=== PATIENT | male | born 1960 | race Caucasian/White ===

== ENCOUNTER 2021-09-29 02:12 | Inpatient (IN) ==
[2021-09-29] MEDS ORDERED: Ondansetron 4 MG/2 ML VIAL IVP ONE (07:09)
[2021-09-29] MEDS ORDERED: Artificial Tears SOLN 15 ML BOTTLE BOTH EYES PRN (08:02)
[2021-09-29] MEDS ORDERED: Acetaminophen 325 MG TABLET PO PRN (08:02)
[2021-09-29] MEDS ORDERED: Naloxone 0.4 MG/ML INJ IVP PRN (08:02)
[2021-09-29] MEDS ORDERED: Perflutren Lipid Microsphere 1.3 ML in 0.9 % Sodium Chloride 8.7 ML IVP PRN (08:55)
[2021-09-29] MEDS ORDERED: Vancomycin (wt based) 1,000 MG VIAL IVPB SCH (09:00)
[2021-09-29] MEDS ORDERED: *HR* Heparin 5,000 UNIT/ML VIAL SQ SCH (09:15)
[2021-09-29 11:02] LABS: ABG Base Excess 4 mEq/L (-2 to 3); ABG HCO3 30 mEq/L (21-27); ABG Oxygen Saturation 100 % (95-98); ABG PCO2 50 mmHg (35-45); ABG PH 7.39 pH Units (7.32-7.45); ABG PO2 204 mmHg (85-104); ABG TCO2 31 mEq/L (20-26); Blood Gas Modality ASSIST CONTROL; Blood Gas VT 450 cc
[2021-09-29] MEDS: Pantoprazole 40 MG VIAL IVP SCH (11:40)
[2021-09-29] MEDS: Artificial Tears SOLN 15 ML BOTTLE BOTH EYES SCH ×4 (11:41→23:05)
[2021-09-29] MEDS: Chlorhexidine Rinse 15 ML MOUTHWASH MM SCH ×2 (11:41→20:00)
[2021-09-29] MEDS: Ondansetron 4 MG/2 ML VIAL IVP SCH ×4 (12:24→20:01)
[2021-09-29] MEDS ORDERED: *HR* Heparin 5,000 UNIT/ML VIAL IVP PRN ×2 (13:04)
[2021-09-29] MEDS ORDERED: *HR* Heparin 5,000 UNIT/ML VIAL IVP ONE (13:04)
[2021-09-29] MEDS ORDERED: Heparin 25,000UNIT/250ML 1/2NS 25,000 UNIT/250 ML IV.SOLN IVC SCH (13:15)
[2021-09-29] MEDS: Heparin 25,000UNIT/250ML 1/2NS 25,000 UNIT/250 ML IV.SOLN IVC SCH (14:23)
[2021-09-29 14:51] LABS: Heparin anti-factor XA UFH 0.39 IU/mL (0.30-0.70)
[2021-09-29 14:54] LABS: Activated Partial Thrombo Time 32.3 Seconds (26.0-36.0)
[2021-09-29] MEDS: Piperacillin/Tazobactam 3.375 GM in 0.9 % Sodium Chloride Mini Bag 100 ML IVPB SCH ×2 (17:08→23:05)
[2021-09-29] MEDS: Norepinephrine 4 MG/254 ML IV.SOLN IVC SCH (18:27)
[2021-09-30 02:48] LABS: VBG Ionized Calcium 1.28 mmol/L (1.15-1.35)
[2021-09-30 02:54] LABS: Basophils % 0.2 %; Eosinophils # 0.2 K/mcL (0.0-0.6); Eosinophils % 1.1 %; Hematocrit 28.5 % (37.5-50.1); Hemoglobin 8.5 g/dL (12.9-16.9); Immature Granulocytes % 0.4 % (0-4); Lymphocytes # 1.1 K/mcL (0.6-4.6); Lymphocytes % 5.9 %; Mean Corpuscular HGB Conc 29.8 g/dL (31.6-35.5); Mean Corpuscular Hemoglobin 24.9 pg (28.0-33.3); Mean Corpuscular Volume 83.3 fL (83.0-100.0); Mean Platelet Volume 9.7 fL (9.4-12.4); Monocytes # 1.1 K/mcL (0.0-1.3); Monocytes % 5.9 %; Neutrophils # 16.2 K/mcL (1.6-8.9); Platelet Count 318 K/mcL (140-400); Red Blood Count 3.42 M/mcL (4.19-5.50); Red Cell Distribution Width 17.6 % (11.5-14.5); Segmented Neutrophils % 86.5 %; White Blood Count 18.7 K/mcL (4.3-11.1)
[2021-09-30 03:05] LABS: Calcium 9.2 mg/dL (8.6-10.3); Magnesium 1.9 mg/dL (1.6-2.6); Phosphorous 2.6 mg/dL (2.7-4.5)
[2021-09-30] MEDS: Artificial Tears SOLN 15 ML BOTTLE BOTH EYES SCH ×5 (03:33→20:06)
[2021-09-30 04:09] LABS: ABG Base Excess 3 mEq/L (-2 to 3); ABG HCO3 27 mEq/L (21-27); ABG Oxygen Saturation 99 % (95-98); ABG PCO2 43 mmHg (35-45); ABG PH 7.41 pH Units (7.32-7.45); ABG PO2 130 mmHg (85-104); ABG TCO2 29 mEq/L (20-26); Blood Gas VT 450 cc
[2021-09-30] MEDS: Pantoprazole 40 MG VIAL IVP SCH (08:28)
[2021-09-30] MEDS: Chlorhexidine Rinse 15 ML MOUTHWASH MM SCH ×2 (08:28→20:06)
[2021-09-30] MEDS: Piperacillin/Tazobactam 3.375 GM in 0.9 % Sodium Chloride Mini Bag 100 ML IVPB SCH ×2 (08:29→15:21)
[2021-09-30] MEDS: Norepinephrine 4 MG/254 ML IV.SOLN IVC SCH (08:30)
[2021-09-30] MEDS ORDERED: Lidocaine -MPF 1% 5 ML AMPUL ONE (11:42)
[2021-09-30] MEDS: Ondansetron 4 MG/2 ML VIAL IVP SCH ×2 (11:50→17:33)
[2021-09-30] MEDS ORDERED: *HR* FentaNYL (PF) 100 MCG/2 ML VIAL ONE (11:55)
[2021-09-30] MEDS ORDERED: *HR* Midazolam HCl 5 MG/5 ML VIAL IVP ONE (11:56)
[2021-09-30] MEDS ORDERED: *HR* Midazolam HCl 2 MG/2 ML VIAL IVP ONE (12:10)
[2021-09-30] MEDS ORDERED: *HR* FentaNYL (PF) 100 MCG/2 ML VIAL IVP ONE (12:10)
[2021-09-30] MEDS: Heparin 25,000UNIT/250ML 1/2NS 25,000 UNIT/250 ML IV.SOLN IVC SCH (13:23)
[2021-09-30] MEDS ORDERED: carvediloL 6.25 MG TABLET PO SCH (17:00)
[2021-09-30] MEDS: *HR* HYDROcodone/Acet 5/325 mg TABLET PO PRN (20:06)
[2021-10-01] MEDS: Ondansetron 4 MG/2 ML VIAL IVP SCH ×5 (00:17→18:57)
[2021-10-01] MEDS: Piperacillin/Tazobactam 3.375 GM in 0.9 % Sodium Chloride Mini Bag 100 ML IVPB SCH ×3 (00:18→19:35)
[2021-10-01] MEDS: Artificial Tears SOLN 15 ML BOTTLE BOTH EYES SCH ×6 (00:25→21:02)
[2021-10-01] MEDS: *HR* HYDROcodone/Acet 5/325 mg TABLET PO PRN (03:29)
[2021-10-01 03:55] LABS: Calcium 9.5 mg/dL (8.6-10.3); Magnesium 1.9 mg/dL (1.6-2.6); Potassium 4.3 mEq/L (3.5-5.1)
[2021-10-01 04:53] LABS: ABG Base Excess -4 mEq/L (-2 to 3); ABG HCO3 22 mEq/L (21-27); ABG Oxygen Saturation 95 % (95-98); ABG PCO2 40 mmHg (35-45); ABG PH 7.34 pH Units (7.32-7.45); ABG PO2 82 mmHg (85-104); ABG TCO2 23 mEq/L (20-26); Blood Gas Modality ASSIST CONTROL; Blood Gas VT 450 cc
[2021-10-01 05:38] LABS: Hepatitis B Surface Antibody < 3.10 mIU/mL
[2021-10-01 05:49] LABS: Hepatitis B Surface Antigen Nonreactive (Nonreactive)
[2021-10-01] MEDS ORDERED: D5% in Water 1,000 ML IVC PRN (07:21)
[2021-10-01] MEDS ORDERED: Artificial Tears SOLN 15 ML BOTTLE BOTH EYES PRN (07:21)
[2021-10-01] MEDS ORDERED: Docusate Oral Soln 100 MG/10 ML UDC GTUBE PRN (07:21)
[2021-10-01] MEDS ORDERED: Dextrose 4 GM Chewable Tablets PO PRN ×2 (07:21)
[2021-10-01] MEDS ORDERED: *HR* Heparin 5,000 UNIT/ML VIAL IVP PRN ×2 (07:21)
[2021-10-01] MEDS ORDERED: *HR* Dextrose 50 % in Water (Syg) 50 ML SYRINGE IVP PRN (07:21)
[2021-10-01] MEDS ORDERED: Heparin 25,000UNIT/250ML 1/2NS 25,000 UNIT/250 ML IV.SOLN IVC SCH (07:21)
[2021-10-01] MEDS ORDERED: Naloxone 0.4 MG/ML INJ IVP PRN (07:21)
[2021-10-01] MEDS ORDERED: HydrOXYzine SYP 10 MG/5 ML UDC GTUBE PRN (07:49)
[2021-10-01] MEDS: Albuterol 2.5 MG/3 ML NEBULIZER IH SCH ×4 (08:21→20:27)
[2021-10-01] MEDS: Cyanocobalamin (B-12) 1,000 MCG TABLET GTUBE SCH (08:55)
[2021-10-01] MEDS: Insulin LISPRO 300 UNITS/3 ML VIAL SUBQ SCH ×3 (08:55→18:56)
[2021-10-01] MEDS: Chlorhexidine Rinse 15 ML MOUTHWASH MM SCH ×2 (08:55→21:04)
[2021-10-01] MEDS: Pantoprazole 40 MG VIAL IVP SCH (08:56)
[2021-10-01] MEDS: GuaiFENesin Liq 200 MG/10 ML UDC GTUBE SCH ×3 (09:06→18:56)
[2021-10-01] MEDS ORDERED: Budesonide/Formoterol 160/4.5 1 PUFF INH IH ONE (09:31)
[2021-10-01 16:55] LABS: Hematocrit 29.5 % (37.5-50.1); Hemoglobin 8.7 g/dL (12.9-16.9); Mean Corpuscular HGB Conc 29.5 g/dL (31.6-35.5); Mean Corpuscular Hemoglobin 25.5 pg (28.0-33.3); Mean Corpuscular Volume 86.5 fL (83.0-100.0); Mean Platelet Volume 9.7 fL (9.4-12.4); Platelet Count 394 K/mcL (140-400); Red Blood Count 3.41 M/mcL (4.19-5.50); Red Cell Distribution Width 17.9 % (11.5-14.5); White Blood Count 21.8 K/mcL (4.3-11.1)
[2021-10-01] MEDS ORDERED: 0.9 % Sodium Chloride 250 ML IV ONE ×2 (20:48→23:41)
[2021-10-01] MEDS ORDERED: 0.9 % Sodium Chloride 250 ML ONE ×2 (20:50→23:47)
[2021-10-01] MEDS ORDERED: Apixaban 5 MG TABLET PO SCH (21:00)
[2021-10-01 21:20] LABS: Red Cell Distribution Width 17.9 % (11.5-14.5)
[2021-10-01 21:22] LABS: Hemoglobin 8.4 g/dL (12.9-16.9); Mean Corpuscular Hemoglobin 24.6 pg (28.0-33.3); Mean Platelet Volume 9.7 fL (9.4-12.4); Platelet Count 429 K/mcL (140-400); Red Blood Count 3.41 M/mcL (4.19-5.50); White Blood Count 24.7 K/mcL (4.3-11.1)
[2021-10-01 21:28] LABS: INR 1.5; Prothrombin Time 17.1 Seconds (9.4-12.1)
[2021-10-01 21:31] LABS: Activated Partial Thrombo Time 89.6 Seconds (26.0-36.0)
[2021-10-01] MEDS ORDERED: Albumin 25% 25gram/100mL 25 GM/100 ML IV.SOLN IVPB ONE (21:32)
[2021-10-01 21:36] LABS: Albumin/Globulin Ratio 1.2 (1.1-2.2); Bilirubin,Total 0.6 mg/dL (0.3-1.0); Calcium 9.5 mg/dL (8.6-10.3); Globulin 2.6 g/dL (2.4-3.5); Total Protein 5.6 g/dL (6.4-8.9)
[2021-10-01] MEDS: Apixaban 5 MG TABLET PO SCH (21:46)
[2021-10-01 22:12] LABS: Lymphocytes # 1.5 K/mcL (0.6-4.6); Monocytes # 0.5 K/mcL (0.0-1.3); Neutrophils # 22.7 K/mcL (1.6-8.9)
[2021-10-01 22:14] LABS: Poikilocytosis 1+ (Not Present)
[2021-10-02] MEDS: Artificial Tears SOLN 15 ML BOTTLE BOTH EYES SCH ×6 (00:03→20:44)
[2021-10-02] MEDS: Ondansetron 4 MG/2 ML VIAL IVP SCH ×3 (00:05→12:16)
[2021-10-02] MEDS: GuaiFENesin Liq 200 MG/10 ML UDC GTUBE SCH ×3 (00:06→12:16)
[2021-10-02] MEDS: Insulin LISPRO 300 UNITS/3 ML VIAL SUBQ SCH ×4 (00:10→20:45)
[2021-10-02] MEDS ORDERED: Phenylephrine 20 MG in 0.9 % Sodium Chloride 250 ML IVC SCH (01:00)
[2021-10-02] MEDS: Albuterol 2.5 MG/3 ML NEBULIZER IH SCH ×4 (03:15→21:33)
[2021-10-02] MEDS ORDERED: Piperacillin/Tazobactam 3.375 GM in 0.9 % Sodium Chloride Mini Bag 100 ML IVPB SCH (04:00)
[2021-10-02] MEDS: Phenylephrine 100 MG in 0.9 % Sodium Chloride 250 ML IVC SCH ×2 (04:53→17:21)
[2021-10-02 05:49] LABS: Basophils % 0.1 %; Hemoglobin 8.5 g/dL (12.9-16.9)
[2021-10-02 05:51] LABS: Hematocrit 28.6 % (37.5-50.1); Immature Granulocytes % 0.8 % (0-4); Lymphocytes # 1.1 K/mcL (0.6-4.6); Lymphocytes % 3.9 %; Mean Corpuscular HGB Conc 29.7 g/dL (31.6-35.5); Mean Corpuscular Hemoglobin 25.8 pg (28.0-33.3); Mean Corpuscular Volume 86.7 fL (83.0-100.0); Mean Platelet Volume 9.9 fL (9.4-12.4); Monocytes # 1.8 K/mcL (0.0-1.3); Monocytes % 6.3 %; Neutrophils # 25.9 K/mcL (1.6-8.9); Platelet Count 480 K/mcL (140-400); Red Cell Distribution Width 17.8 % (11.5-14.5); Segmented Neutrophils % 88.9 %; White Blood Count 29.1 K/mcL (4.3-11.1)
[2021-10-02 06:13] LABS: Calcium 9.3 mg/dL (8.6-10.3)
[2021-10-02] MEDS: Acetaminophen 325 MG TABLET PO PRN ×2 (08:48→16:05)
[2021-10-02] MEDS: Chlorhexidine Rinse 15 ML MOUTHWASH MM SCH ×2 (08:48→20:44)
[2021-10-02] MEDS: Pantoprazole 40 MG VIAL IVP SCH (08:49)
[2021-10-02] MEDS: Cyanocobalamin (B-12) 1,000 MCG TABLET GTUBE SCH (08:49)
[2021-10-02] MEDS: Apixaban 5 MG TABLET PO SCH ×2 (08:49→20:46)
[2021-10-02] MEDS ORDERED: Albumin Human 5% 12.5 GM/250 ML IV.SOLN IVPB ONE ×2 (15:20→20:45)
[2021-10-03] MEDS: GuaiFENesin Liq 200 MG/10 ML UDC GTUBE SCH ×4 (00:48→12:34)
[2021-10-03] MEDS: Ondansetron 4 MG/2 ML VIAL IVP SCH ×4 (00:49→12:34)
[2021-10-03] MEDS: Insulin LISPRO 300 UNITS/3 ML VIAL SUBQ SCH ×4 (00:50→17:33)
[2021-10-03] MEDS: Artificial Tears SOLN 15 ML BOTTLE BOTH EYES SCH ×5 (00:50→17:32)
[2021-10-03] MEDS: Albuterol 2.5 MG/3 ML NEBULIZER IH SCH ×4 (04:02→20:32)
[2021-10-03 04:42] LABS: Immature Granulocytes % 1.2 % (0-4)
[2021-10-03 04:44] LABS: Basophils # 0.1 K/mcL (0.0-0.2); Basophils % 0.2 %; Hematocrit 29.6 % (37.5-50.1); Hemoglobin 8.6 g/dL (12.9-16.9); Lymphocytes # 0.5 K/mcL (0.6-4.6); Mean Corpuscular HGB Conc 29.1 g/dL (31.6-35.5); Mean Corpuscular Hemoglobin 24.7 pg (28.0-33.3); Mean Corpuscular Volume 85.1 fL (83.0-100.0); Mean Platelet Volume 9.8 fL (9.4-12.4); Monocytes # 1.8 K/mcL (0.0-1.3); Monocytes % 6.6 %; Neutrophils # 24.2 K/mcL (1.6-8.9); Platelet Count 372 K/mcL (140-400); Red Blood Count 3.48 M/mcL (4.19-5.50); Red Cell Distribution Width 17.6 % (11.5-14.5); White Blood Count 26.9 K/mcL (4.3-11.1)
[2021-10-03 05:01] LABS: Albumin 3.7 g/dL (3.5-5.7); Albumin/Globulin Ratio 1.5 (1.1-2.2); Bilirubin,Total 0.6 mg/dL (0.3-1.0); Calcium 8.9 mg/dL (8.6-10.3); Globulin 2.5 g/dL (2.4-3.5); Magnesium 2.3 mg/dL (1.6-2.6); Phosphorous 8.6 mg/dL (2.7-4.5); Potassium 5.2 mEq/L (3.5-5.1); Total Protein 6.2 g/dL (6.4-8.9)
[2021-10-03] MEDS ORDERED: Calcium Gluconate 1gm/50mL 1 GM/50 ML BAG IVPB PRN (06:57)
[2021-10-03] MEDS: Acetaminophen 325 MG TABLET PO PRN ×2 (07:40→16:59)
[2021-10-03] MEDS: Chlorhexidine Rinse 15 ML MOUTHWASH MM SCH (08:40)
[2021-10-03] MEDS: Pantoprazole 40 MG VIAL IVP SCH (08:40)
[2021-10-03] MEDS: Cyanocobalamin (B-12) 1,000 MCG TABLET GTUBE SCH (08:40)
[2021-10-03] MEDS: Apixaban 5 MG TABLET PO SCH (08:40)
[2021-10-03 10:45] LABS: Basophils % 0.1 %; Hematocrit 28.1 % (37.5-50.1); Hemoglobin 8.3 g/dL (12.9-16.9); Immature Granulocytes % 0.6 % (0-4); Lymphocytes # 0.5 K/mcL (0.6-4.6); Lymphocytes % 2.2 %; Mean Corpuscular HGB Conc 29.5 g/dL (31.6-35.5); Mean Corpuscular Hemoglobin 24.6 pg (28.0-33.3); Mean Corpuscular Volume 83.1 fL (83.0-100.0); Monocytes # 1.7 K/mcL (0.0-1.3); Monocytes % 7.8 %; Neutrophils # 19.8 K/mcL (1.6-8.9); Platelet Count 351 K/mcL (140-400); Red Blood Count 3.38 M/mcL (4.19-5.50); Red Cell Distribution Width 17.6 % (11.5-14.5); Segmented Neutrophils % 89.3 %; White Blood Count 22.2 K/mcL (4.3-11.1)
[2021-10-03 11:03] LABS: Calcium 8.9 mg/dL (8.6-10.3)
[2021-10-03 11:08] VITALS: TEMP 98.5
[2021-10-03] MEDS ORDERED: *HR* Heparin 5,000 UNIT/ML VIAL IVP PRN (14:28)
[2021-10-03] MEDS ORDERED: 0.9 % Sodium Chloride 1,000 ML PRIME ONE ×2 (14:28)
[2021-10-03] MEDS ORDERED: *HR* Alteplase (Cathflo) 2 MG VIAL IVP PRN (14:28)
[2021-10-03] MEDS ORDERED: 0.9 % Sodium Chloride 1,000 ML PRIME SCH (14:30)
[2021-10-03] MEDS ORDERED: PrismaSATE BGK 4/2.5 5,000 ML CRRT SCH ×2 (14:30)
[2021-10-03] MEDS: Phenylephrine 100 MG in 0.9 % Sodium Chloride 250 ML IVC SCH (17:34)
[2021-10-03] MEDS ORDERED: Norepinephrine 4 MG/254 ML IV.SOLN IVC SCH ×2 (17:45)
[2021-10-03 17:50] LABS: Hematocrit 32.4 % (37.5-50.1); Hemoglobin 9.6 g/dL (12.9-16.9); Mean Corpuscular HGB Conc 29.6 g/dL (31.6-35.5); Mean Corpuscular Hemoglobin 24.7 pg (28.0-33.3); Mean Corpuscular Volume 83.5 fL (83.0-100.0); Mean Platelet Volume 9.7 fL (9.4-12.4); Neutrophils # 21.6 K/mcL (1.6-8.9); Platelet Count 366 K/mcL (140-400); Red Blood Count 3.88 M/mcL (4.19-5.50); Red Cell Distribution Width 17.9 % (11.5-14.5)
[2021-10-03 17:54] LABS: ABG Base Excess 4 mEq/L (-2 to 3); ABG HCO3 28 mEq/L (21-27); ABG Oxygen Saturation 92 % (95-98); ABG PCO2 36 mmHg (35-45); ABG PH 7.49 pH Units (7.32-7.45); ABG PO2 58 mmHg (85-104); ABG TCO2 29 mEq/L (20-26); Blood Gas Modality ASSIST CONTROL
[2021-10-03] MEDS ORDERED: EPINEPHrine 5 MG in D5% in Water 250 ML IVC SCH (18:00)
[2021-10-03 18:15] LABS: Lymphocytes # 0.5 K/mcL (0.6-4.6); Monocytes # 1.9 K/mcL (0.0-1.3); Platelet Estimate Normal (Normal)
[2021-10-03 19:50] VITALS: BP 61/30; PULSE 79; O2SAT 92
== END 2021-10-03 23:39 | disposition expired | DRG 871 ==
LOC: ICNU 06:45 → SUATTDRO 06:45 → 2NNU 10-01 17:27
PROVIDERS: ADMIT Internal Medicine; ATTEND Internal Medicine